=== PATIENT | male | born 1975 | race Caucasian/White ===

== ENCOUNTER 2016-11-21 10:05 | Emergency (ER) | payer OTHER, MEDICAID ==
[~2016-11-21] VITALS: Wt 68.0 kg
[~2016-11-21 10:05] MED LIST: HYDROCODONE BIT1 T11 PO; NAPROSYN500 MG PO; NKHM; Orphenadrine C100 MG PO; PROCTOCORT30 MG RC; ULTRAM50 MG PO
[2016-11-21] MEDS ORDERED: Motrin,Rufen800 MG PO (12:04)
[2016-11-21] MEDS ORDERED: SKELAXIN800 M1 PO (12:04)
== END 2016-11-21 12:30 | disposition home or self-care (01) ==
LOC: ED 10:05
DX: S51.012A Laceration without foreign body of left elbow, initial encounter (principal); S81.012A Laceration without foreign body, left knee, initial encounter; S90.32XA Contusion of left foot, initial encounter; Z88.8 Allergy status to other drugs, medicaments and biological substances; V87.7XXA Person injured in collision between other specified motor vehicles (traffic), initial encounter; Y93.89 Activity, other specified; Y92.89 Other specified places as the place of occurrence of the external cause; Y99.8 Other external cause status